=== PATIENT | female | born 1955 | race Caucasian/White ===

== ENCOUNTER 2018-02-19 10:04 | Emergency (ER) | payer BC ==
[2018-02-19 11:14] LABS: ADD MAN DIFF? NO
[2018-02-19 11:19] LABS: BASOPHILS % 0.7 % (0.0-2.0); EOSINOPHILS % 3.2 % (0.0-7.0); HEMOGLOBIN 15.5 g/dl (12.0-16.0); LYMPHOCYTES # 1.8 10^3/ul (0.8-2.9); LYMPHOCYTES % 30.6 % (15.0-51.0); MEAN CORPUSCULAR HEMOGLOBIN 27.6 pg (29.0-33.0); MEAN CORPUSCULAR HGB CONC 33.7 g/dl (32.0-37.0); MEAN CORPUSCULAR VOLUME 81.9 fl (82.0-101.0); MEAN PLATELET VOLUME 11.4 fl (7.4-10.4); MONOCYTES % 5.4 % (0.0-11.0); NEUTROPHIL # 3.4 10^3/ul (1.6-7.5); NEUTROPHILS % 59.4 % (39.0-77.0); PLATELET COUNT 190 10^3/UL (140-415); RED BLOOD COUNT 5.62 10^6/ul (4.20-5.40); RED CELL DISTRIBUTION WIDTH 12.6 % (11.5-14.5)
[2018-02-19 11:19] LABS: WHITE BLOOD COUNT 5.7 10^3/ul (4.8-10.8)
[2018-02-19 11:20] LABS: EOSINOPHILS # 0.2 10^3/ul (0.0-0.5); MONOCYTE # 0.3 10^3/ul (0.3-0.9)
[2018-02-19 11:46] LABS: ALANINE AMINOTRANSFERASE 25 IU/L (13-69); ALBUMIN/GLOBULIN RATIO 1.33; ALKALINE PHOSPHATASE 84 IU/L (42-121); ANION GAP 13 (8-16); ASPARTATE AMINO TRANSFERASE 19 IU/L (15-46); BILIRUBIN,INDIRECT 0.6 mg/dl (0-1.1); BILIRUBIN,TOTAL 0.6 mg/dl (0.2-1.3); BLOOD UREA NITROGEN 20 mg/dl (7-20); CALCIUM 9.3 mg/dl (8.4-10.2); CARBON DIOXIDE 24 mmol/L (21-31); CHLORIDE 102 mmol/L (97-110); CREATINE KINASE 52 IU/L (23-200); CREATININE 0.81 mg/dl (0.44-1.00); GLUCOSE 375 mg/dl (70-220); POTASSIUM 4.1 mmol/L (3.5-5.1); SODIUM 135 mmol/L (135-144)
[2018-02-19 11:47] LABS: INR 0.92; PARTIAL THROMBOPLASTIN TIME 29.7 Sec (25.0-35.0); PROTIME 12.4 Sec (11.9-14.9)
[2018-02-19 11:57] LABS: B-TYPE NATRIURETIC PEPTIDE 338 PG/ML (0-125); CK INDEX 1.6; CK-MB 0.83 ng/ml (0.0-2.4); TROPONIN-I < 0.010 ng/ml (0.000-0.120)
== END 2018-02-19 12:51 | disposition home or self-care (01) ==
LOC: E/R 10:04
DX: I16.0 Hypertensive urgency (principal); L03.011 Cellulitis of right finger
CPT/HCPCS: 80053; 82550; 82553; 83880; 84484; 85025; 85610; 85730; 93005; 99284-25

== ENCOUNTER 2018-12-19 10:51 | Emergency (ER) | payer BC ==
[2018-12-19] MEDS ORDERED: DILTIAZEM 25 MG INJ (11:24)
[2018-12-19] MEDS: DILTIAZEM 25 MG INJ IV ×2 (11:55→11:56)
[2018-12-19] MEDS: METOPROLOL 5 MG INJ IV (12:17)
[2018-12-19 12:39] LABS: ADD MAN DIFF? NO
[2018-12-19 12:40] LABS: BASOPHIL # 0.1 10^3/ul (0.0-0.1); BASOPHILS % 0.5 % (0.0-2.0); EOSINOPHILS # 0.3 10^3/ul (0.0-0.5); EOSINOPHILS % 2.7 % (0.0-7.0); HEMATOCRIT 49.8 % (37.0-47.0); HEMOGLOBIN 16.2 g/dl (12.0-16.0); LYMPHOCYTES # 1.8 10^3/ul (0.8-2.9); LYMPHOCYTES % 18.1 % (15.0-51.0); MEAN CORPUSCULAR HEMOGLOBIN 27.6 pg (29.0-33.0); MEAN CORPUSCULAR HGB CONC 32.5 g/dl (32.0-37.0); MEAN CORPUSCULAR VOLUME 84.7 fl (82.0-101.0); MEAN PLATELET VOLUME 12.5 fl (7.4-10.4); MONOCYTE # 0.6 10^3/ul (0.3-0.9); MONOCYTES % 5.7 % (0.0-11.0); NEUTROPHIL # 7.3 10^3/ul (1.6-7.5); NEUTROPHILS % 72.5 % (39.0-77.0); PLATELET COUNT 275 10^3/UL (140-415); RED BLOOD COUNT 5.88 10^6/ul (4.20-5.40)
[2018-12-19 12:47] LABS: ANION GAP 12 (5-13); BLOOD UREA NITROGEN 15 mg/dl (7-20); CALCIUM 8.8 mg/dl (8.4-10.2); CARBON DIOXIDE 24 mmol/L (21-31); CHLORIDE 101 mmol/L (97-110); CREATININE 0.83 mg/dl (0.44-1.00); Estimated GFR > 60 mL/min (>60); POTASSIUM 4.4 mmol/L (3.5-5.1); SODIUM 137 mmol/L (135-144)
[2018-12-19 12:54] LABS: GLUCOSE 408 mg/dl (70-220)
[2018-12-19 12:57] LABS: TROPONIN-I 0.078 ng/ml (0.000-0.120)
[2018-12-19] MEDS: METOPROLOL 25 MG TAB PO (13:16)
[2018-12-19] MEDS: SOD CHLORIDE 0.9% 1,000 ML IV (14:38)
[2018-12-19] MEDS: ASPIRIN 81 MG TAB PO (15:08)
[2018-12-19] MEDS: metFORMIN 500 MG TAB PO (15:11)
[2018-12-19] MEDS: GLIMEPIRIDE 2 MG TAB PO (15:20)
== END 2018-12-19 17:51 | disposition short-term general hospital (02) ==
LOC: E/R 10:51
DX: I48.91 Unspecified atrial fibrillation (principal); E11.65 Type 2 diabetes mellitus with hyperglycemia; Z79.84 Long term (current) use of oral hypoglycemic drugs
CPT/HCPCS: 36415; 71045; 80048; 82962; 84484; 85025; 93005; 96374; 96375; 99285-25